=== PATIENT | male | born 1980 | race African-American/Black ===

== ENCOUNTER 2018-04-07 09:13 | Observation (INO) ==
[2018-04-07 11:31] LABS: Basophils % 0.3 % (0.0-0.8); Eosinophils # 0.2 10*3/uL (0.0-0.87); Eosinophils % 1.7 % (0.00-10.9); Hematocrit 39.3 VOL% (42.0-52.0); Hemoglobin 13.6 GM/DL (14.0-18.0); Immature Granulocytes % 0.3 %; Immature Granulocytes Absolute 0.03 #; Lymphocytes # 1.5 10*3/uL (1.4-4.0); Lymphocytes % 13.6 % (21.2-54.2); Mean Corpuscular HGB Conc 34.6 GM/DL (32-36); Mean Corpuscular Hemoglobin 30 PG (27-34); Mean Corpuscular Volume 85.8 FL (87-102); Mean Platelet Volume 9.9 FL (9.6-12.0); Monocytes # 0.9 10*3/uL (0.11-0.8); Monocytes % 8.3 % (1.7-12.7); Neutrophils # 8.5 10*3/uL (1.4-7.4); Neutrophils % 75.8 % (38.7-73.9); Platelet Count 246 T/CUMM (130-400); Red Blood Count 4.58 MC/CUMM (3.8-5.5); Red Cell Distribution Width 11.4 % (9.3-17.3); White Blood Count 11.2 T/CUMM (4-12)
[2018-04-07 12:09] LABS: Bilirubin,Total 0.7 MG/DL (0.2-1.0); Osmolality,Calculated 284.7 MOS/KG (273-304); Potassium 3.8 MMOL/L (3.5-5.1); Total Protein 7.4 G/DL (6.4-8.3)
[2018-04-07] MEDS ORDERED: PIPERACILLIN/TAZOBACTAM 3,375 MG in SODIUM CHLORIDE 0.9% 100 ML IV STA (12:26)
[2018-04-07] MEDS ORDERED: ONDANSETRON 4 MG/2 ML VIAL IV PRN ×2 (14:46→17:03)
[2018-04-07] MEDS ORDERED: DEXTROSE 50% 25 GM/50 ML VIAL IV PRN (14:46)
[2018-04-07] MEDS ORDERED: ACETAMINOPHEN 325 MG TABLET PO PRN (14:46)
[2018-04-07] MEDS ORDERED: GLUCAGON 1 MG VIAL IM PRN (14:46)
[2018-04-07] MEDS ORDERED: MORPHINE 4 MG/1 ML VIAL IV PRN (14:46)
[2018-04-07] MEDS ORDERED: MORPHINE 10 MG/1 ML VIAL IV PRN (17:03)
[2018-04-07] MEDS ORDERED: PROMETHAZINE INJ 25 MG in SODIUM CHLORIDE 0.9% 50 ML IV PRN (17:03)
[2018-04-07] MEDS ORDERED: MEPERIDINE 25 MG/1 ML VIAL IV PRN (17:03)
[2018-04-07] MEDS ORDERED: diphenhydrAMINE 50 MG/1 ML VIAL IV PRN (17:03)
[2018-04-07] MEDS ORDERED: PROPOFOL 200 MG/20 ML VIAL IV ONE (17:09)
[2018-04-07] MEDS ORDERED: SEVOFLURANE 1 UNIT/15 MINUTE INH ONE (17:09)
[2018-04-07] MEDS ORDERED: MIDAZOLAM 2 MG/2 ML VIAL ONE (17:10)
[2018-04-07] MEDS ORDERED: fentaNYL 100 MCG/2 ML VIAL ONE (17:10)
[2018-04-07] MEDS ORDERED: ONDANSETRON 4 MG/2 ML VIAL ONE (17:10)
[2018-04-07] MEDS ORDERED: KETOROLAC 30 MG/1 ML VIAL ONE (17:10)
[2018-04-07] MEDS: LACTATED RINGERS 1,000 ML IV SCH ×2 (17:39→20:59)
[2018-04-07] MEDS: metFORMIN 500 MG TABLET PO SCH (18:49)
[2018-04-07] MEDS: INSULIN LISPRO 100 UNIT/ML SUBCUT SCH ×2 (18:50→20:59)
[2018-04-08] MEDS: LACTATED RINGERS 1,000 ML IV SCH (04:58)
[2018-04-08 06:59] LABS: Basophils % 0.4 % (0.0-0.8); Eosinophils # 0.2 10*3/uL (0.0-0.87); Eosinophils % 2.5 % (0.00-10.9); Hematocrit 35.4 VOL% (42.0-52.0); Hemoglobin 12.3 GM/DL (14.0-18.0); Immature Granulocytes % 0.2 %; Immature Granulocytes Absolute 0.02 #; Lymphocytes # 1.9 10*3/uL (1.4-4.0); Lymphocytes % 23.7 % (21.2-54.2); Mean Corpuscular HGB Conc 34.7 GM/DL (32-36); Mean Corpuscular Hemoglobin 30 PG (27-34); Mean Corpuscular Volume 85.1 FL (87-102); Mean Platelet Volume 10.4 FL (9.6-12.0); Monocytes # 0.6 10*3/uL (0.11-0.8); Monocytes % 7.2 % (1.7-12.7); Neutrophils # 5.3 10*3/uL (1.4-7.4); Platelet Count 236 T/CUMM (130-400); Red Blood Count 4.16 MC/CUMM (3.8-5.5); Red Cell Distribution Width 11.5 % (9.3-17.3); White Blood Count 8.1 T/CUMM (4-12)
[2018-04-08 07:29] LABS: Calcium 8.3 MG/DL (8.5-10.1); Osmolality,Calculated 282.4 MOS/KG (273-304); Potassium 3.3 MMOL/L (3.5-5.1)
[2018-04-08] MEDS: metFORMIN 500 MG TABLET PO SCH (08:54)
[2018-04-08] MEDS: INSULIN LISPRO 100 UNIT/ML SUBCUT SCH ×2 (08:55→12:23)
[2018-04-08] MEDS ORDERED: ENOXAPARIN 40 MG/0.4 ML SYRINGE SUBCUT SCH (09:00)
[2018-04-08] MEDS ORDERED: PANTOPRAZOLE 40 MG TABLET PO SCH (09:00)
[2018-04-08 11:36] VITALS: BP 155/88
== END 2018-04-08 12:22 | disposition home or self-care (01) ==
LOC: N.ED 09:13 → N.EDINP 09:13 → N.2E 14:39
PROVIDERS: ADMIT Surgery; ATTEND Surgery